=== PATIENT | female | born 1945 | race Caucasian/White ===

== ENCOUNTER → 2017-05-12 | Outpatient (CLI) | payer OTHER ==
[~2017-05-12] MED LIST: ADVAIR 2501 DISK W/D PO; ALB/IPRATROPIUM/1 EA INH; ALBUTEROL 0.5ML INH; ALBUTEROL MININEB NEB; ALBUTEROL0.83 MG/ML IH; ALBUTEROL17 GM INH; ALBUTEROL2.5 MG/0.5 INH; ALDACTAZIDE 25/1 TA1 PO; AMLODIPINE BESY10 MG PO; AMOXICILLIN PO; AMOXIL875 MG PO; APIDRA (NF100 UNITS/ SUBQ; ASPIRIN PO; ASPIRIN81 M2 PO; ASPIRINEC PO; ATORVASTATIN CA10 MG PO; AUGMENTIN PO; AZITHROMYCIN500 MG PO; BENZONATATE PO; BUMEX2 MG PO; CATAPRES0.1 MG PO; CHLORTHALIDONE25 MG PO; CIPRO PO; CLEOCIN PO; CLONIDINE PO; CLOPIDOGREL75 MG PO; COLACE; COLACE PO; COMBIVENT INH14.7 GM INH; COMBIVENT U/D3 M1 INH; COMBIVENT U/D3 M2; COMBIVENT U/D3 M2 INH; COMBIVENT U/D3 ML INH; COMBIVENT14.7 GM INH; DALIRESP500 MCG PO; DARVOCET-N 1001 TAB PO; DESYREL50 M1 PO; DESYREL50 MG PO; DIFLUCAN PO; DILANTIN; DILANTIN KAPSE100 MG PO; DILANTIN PO; DOCU SOFT100 M1 PO; DOXYCYCLINE HY100 M1 PO; DOXYCYCLINE PO; DUONEB 2.5-0.5 M3 ML NEB; ENALAPRIL MALE2.5 MG PO; ESTRACE0.5 MG PO; FAMOTIDINE PO; FIORICET 50-321 EACH PO; FLAGYL PO; FLEXERIL; FLEXERIL PO; FLEXERIL10 MG PO; FOSAMAX70 MG PO; FUROSEMIDE40 MG PO; GENTLE LAXATIVE10 MG PR; GLYBURIDE; GLYNASE; GUAIFENESIN PO; HUMULIN 70/30 V10 ML SUBQ; HYDROCODON-ACE1 EAC5 PO; IBUPROFEN800 MG PO; IMDUR-ER60 M2 PO; K-DUR20 ME1 PO; LANTUS100 UNITS/ SUBQ; LASIX; LASIX PO; LASIX20 MG PO; LEVAQUIN PO; LEVAQUIN750 MG PO; LEVEMIR SUBQ; LEVEMIR100 UNITS/ SUBQ; LINZESS145 MCG PO; LIPITOR; LIPITOR PO; LIPITOR40 MG PO; LODINE400 M1 PO; LODINE400 MG PO; LORTAB 10-3251 EACH PO; LORTAB 10-5001 EACH PO; LORTAB 101 TAB 10/5 PO; MEDROL DOSEPAK4 MG PO; MEDROL4 MG/DOSE- PO; MILK OF MAGNESIA PO; MIRALAX17 G1 PO; MOBIC PO; NAPROSYN500 MG PO; NICOTINE PATCH1 EACH TD; NICOTINE T1 PATCH .2 TOP; NICOTINE TRANSD14 MG EXT; NITROGLYGERIN0.4 MG SL; NITROGYLCERIN SUBLINGUAL; NORCO 10-325 TA1 TAB PO; NORVASC; NORVASC PO; NORVASC10 MG PO; NOVOLIN 70/30 V10 M1 SQ; NOVOLIN 70/30 V10 M1 SUBQ; NOVOLIN 70/30 V10 ML INJ; NOVOLOG FL100 UNIT/1 SUBQ; NOVOLOG100 U/ML; NOVOLOG100 U/ML SUBQ; NUCYNTA50 MG PO; OXYGEN; PEN-VEE K PO; PERCOCET PO; PHENERGAN25 M1 PO; PHENERGAN25 MG PO; PHENYTOIN SODI100 M4 PO; PHENYTOIN SODI300 MG PO; PLAVIX PO; POTASSIUM CHLO20 ME1 PO; PREDNISONE PO; PREDNISONE10 MG; PREDNISONE10 MG PO; PREDNISONE10 MG/DOSE PO; PREMARIN; PREMARIN PO; PREMARIN0.3 MG PO; PRILOSEC20 M1 PO; PROTONIX PO; PROVENTIL17 GM IH; SENOKOT S1 TA1 PO; SPIRIVA18 MCG INH; SYMBICORT 16010.2 GM; SYMBICORT INH; TESSALON200 MG; TUSSIONEX PENN473 ML PO; VASOTEC; VASOTEC PO; VASOTEC2.5 MG PO; VIBRAMYCIN100 M1 PO; VICODIN 5/1 TAB 5/50 PO; VICODIN 5/500 T1 TAB PO; VOLTAREN75 MG PO; XANAX1 MG PO; XARELTO15 MG PO; XARELTO20 MG PO; ZITHROMAX PO; ZITHROMAX1 G/PKT PO
--- NOTE | ~2017-05-12 | MR165 ---
[facility] A Service of [facility] & [facility] RADIOLOGY TEXT RESULTS PATIENT: DIANA GUADARRAMA [facility] 43 UNIT #: [id number] AGE: [address]: Jose Luis Coates MD SEX: F ORDER DR: [id number] [facility] [address] [place], [place] [address] [id number] O MR#: [id number] Acc #: [id number] NAME: DIANA GUADARRAMA : 1945 SEX: F STUDY DATE/TIME: 05/12/2017 18:08 UNIT: [facility] ROOM: STUDY DESCRIPTION: MR Shoulder Wo Contrast Rt Attending Physician: Jose Luis Coates M.D. Referring Physician: Jose Luis Coates M.D. Ordering Physician: Jose Luis Coates M.D. Primary Care Physician: Jose Luis Coates M.D. MRI CENTER REPORT This report is preliminary unless electronic signature is present. EXAM MRI of the right shoulder HISTORY 71-year-old female states right shoulder pain, fell getting into [employer]150 truck. Painful to move. FINDINGS Multiplanar multiecho imaging was performed of the right shoulder utilizing a high field magnet and dedicated protocol. Study is degraded due to motion artifact and image noise. Mkgw-vw-yqegvmwo AC joint arthropathy. Marrow signal within the proximal humerus and glenoid appears normal. Small glenohumeral joint effusion. Rotator cuff tendinopathy predominately involving the supraspinatus tendon with a suspected partial-thickness articular-sided tear but no evidence of a full-thickness tear. Infraspinatus, teres minor and subscapularis tendons appear intact. No muscle atrophy or edema. Visualized labrum, biceps anchor and long tendon of the biceps appears intact. Extraarticular soft tissues unremarkable. IMPRESSION 1. Motion degraded examination. 2. No evidence of an occult fracture. 3. Supraspinatus tendinopathy with a suspected partial-thickness articular-sided tear supraspinatus tendon. There is also a trace amount of subacromial-subdeltoid bursal inflammation. 4. Mild AC joint arthropathy. Dictated by... Lonny Ball M.D. THIS IS AN ELECTRONICALLY VERIFIED REPORT [facility] A Service of [facility] RADIOLOGY TEXT RESULTS PATIENT: DIANA GUADARRAMA LOCATION: [facility] : 43 UNIT #: [id number] AGE: [address]: Jose Luis Coates MD SEX: F ORDER DR: Lonny Ball M.D. at 05/13/2017 3:43 PM Gab TD: 05/13/2017 14:04 JOB #: [id number] MRI CENTER REPORT Page 1 of 1 COPY
== END | disposition home or self-care (01) ==
LOC: CMRI 16:39
DX: M25.511 Pain in right shoulder (principal); M75.91 Shoulder lesion, unspecified, right shoulder
CPT/HCPCS: 73221